=== PATIENT | male | born 1985 | race African-American/Black ===

== ENCOUNTER 2018-04-20 06:32 | Emergency (ER) | payer OTHER ==
[2018-04-20] MEDS ORDERED: APAP/HYDROCODONE 325/5 TAB PO ONE (06:50)
[2018-04-20] MEDS ORDERED: IBUPROFEN 600 MG TAB PO ONE (06:50)
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
[2018-04-20 08:30] VITALS: BP 137/83
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
--- NOTE | 2018-04-20 08:57 | RADIOLOGY IMAGING REPORT ---
FACILITY: [facility] PATIENT NAME: Rc Leonard : 1985 MR: [id number] V: [id number] EXAM DATE: ORDERING PHYSICIAN: ZARINA HUNTER TECHNOLOGIST: Location: [facility] Patient: Rc Leonard : 1985 Visit/Account:[id number] Date of Sevice: 04/20/2018 C-SPINE W/O CONTRAST EXAMINATION: Cervical spine CT Additional Pertinent history: none COMPARISON STUDIES: none TECHNIQUE: Axial images were obtained from the skull base through the upper thoracic spine without I V contrast administration. Coronal and sagittal reformatted images were obtained from the axial [facility] e data. One of the following dose optimization techniques was utilized in the performance of this exam: autom ated exposure control; adjustment of the mA and/or kV according to the patient's size; or use of an i terative reconstruction technique. Specific details can be referenced in the facility's radiology CT exam operational policy. FINDINGS: Pre-vertebral soft tissues: negative Alignment: negative Vertebral bodies: The vertebral bodies and posterior elements are intact. The facets are in good alig nment. There is mild straightening of the normal cervical lordosis. Posterior elements: negative Disc Spaces: negative Visualized lung / mediastinum: negative IMPRESSION: No evidence of fracture or malalignment. Report Dictated By: Adam Schwartz at 04/20/2018 8:50 AM Report E-Signed By: Adam Schwartz at 04/20/2018 8:52 AM WSN:[id number]
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
[2018-04-20] MEDS ORDERED: LOR5/325 PO (09:19)
[2018-04-20] MEDS ORDERED: KET10 PO (09:19)
== END 2018-04-20 09:39 | disposition home or self-care (01) ==
LOC: ER 06:54
DX: S90.02XA Contusion of left ankle, initial encounter (principal); S80.02XA Contusion of left knee, initial encounter; S70.02XA Contusion of left hip, initial encounter; S30.0XXA Contusion of lower back and pelvis, initial encounter; V68.0XXA Driver of heavy transport vehicle injured in noncollision transport accident in nontraffic accident, initial encounter
CPT/HCPCS: 72125; 72128; 72131; 73564; 99284